=== PATIENT | male | born 1995 | race African-American/Black ===

== ENCOUNTER 2018-04-26 21:58 | Emergency (ER) | payer SELFPAY ==
--- NOTE | 2018-04-26 22:28 | EDPHYS ---
Physician Documentation [facility] Name: Deondre Amos Jr Age: 23 yrs Sex: Male : 1995 Arrival Date: 04/26/2018 Time: 22:07 Bed 19 Private MD: ED Physician Jimbo Johnson HPI: 04/26 22:15 This 23 yrs old Black Male presents to ER via Unassigned with complaints of Rash. ps1 22:21 rash localized in the webspace and dorsal aspect of the right hand. Described as bumps ps1 and itchy. No new contacts but thinks it may be from fiberglass from work. No remitting or exacerbating factors. Otherwise USOH. . Historical: - Allergies: 22:26 No Known Allergies; jb4 - PMHx: 22:26 None; jb4 - PSHx: 22:26 None; jb4 - Immunization history:: Adult Immunizations up to date, Last tetanus immunization: unknown, Flu vaccine is not up to date. - Social history:: Smoking status: Patient uses tobacco products, denies chronic smoking, but will smoke occasionally, Patient uses alcohol, only on a social basis. - Ebola Screening: : No symptoms or risks identified at this time. ROS: 22:21 Constitutional: Negative for fever, chills, and weight loss, Eyes: Negative for injury, ps1 pain, redness, and discharge, ENT: Negative for injury, pain, and discharge, Cardiovascular: Negative for chest pain, palpitations, and edema, Respiratory: Negative for shortness of breath, cough, wheezing, and pleuritic chest pain, Abdomen/GI: Negative for abdominal pain, nausea, vomiting, diarrhea, and constipation, Neuro: Negative for headache, weakness, numbness, tingling, and seizure. 22:21 Skin: Positive for rash, of the right hand. Exam: 22:21 Constitutional: This is a well developed, well nourished patient who is awake, alert, ps1 and in no acute distress. Head/Face: Normocephalic, atraumatic. Eyes: Pupils equal round and reactive to light, extra-ocular motions intact. Lids and lashes normal. Conjunctiva and sclera are non-icteric and not injected. Chest/axilla: Normal chest wall appearance and motion. Nontender with no deformity. No lesions are appreciated. Cardiovascular: Regular rate and rhythm. No gallops, murmurs, or rubs. Normal PMI, no JVD. No pulse deficits. Respiratory: Lungs have equal breath sounds bilaterally, clear to auscultation and percussion. No rales, rhonchi or wheezes noted. No increased work of breathing, no retractions or nasal flaring. Abdomen/GI: Soft, non-tender, with normal bowel sounds. No distension or tympany. No guarding or rebound. No evidence of tenderness throughout. 22:21 Skin: rash a mild rash is noted, rash can be described as macular, papular, contact dermatitis. Vital Signs: 22:26 BP 133 / 71; Pulse 81; Resp 18; Temp 99.0(O); Pulse Ox 95% on R/A; Weight 95.25 kg (R); jb4 Height 6 ft. 1 in. (185.42 cm) (R); Pain 0/10; 22:26 Body Mass Index 27.71 (95.25 kg, 185.42 cm) jb4 MDM: 22:10 Patient medically screened. ps1 22:21 Data reviewed: vital signs, nurses notes, lab test result(s), and as a result, I will ps1 discharge patient, administer steroids, hydrocortisone cream. Administered Medications: No medications were administered Disposition: 04/26/18 22:28 Discharged to Home. Impression: Atopic dermatitis. - Condition is Stable. - Discharge Instructions: Contact Dermatitis, [id number]. - Prescriptions for Hydrocortisone 0.5 % Topical Cream - apply 1 application by TOPICAL route every 12 hours As needed; 30 gram. - Work release form, Medication Reconciliation Form, Thank You Letter, Antibiotic Education, Prescription Opioid Use form. - Follow up: Private Physician; When: As needed; Reason: Recheck today's complaints, Continuance of care, Re-evaluation by your physician. - Problem is new. - Symptoms have improved. Signatures: Wing Martell RN RN jb4 Jimbo Johnson MD MD ps1 Corrections: (The following items were deleted from the chart) 22:42 22:28 04/26/2018 22:28 Discharged to Home. Impression: Atopic dermatitis. Condition is jb4 Stable. Forms are Medication Reconciliation Form, Thank You Letter, Antibiotic Education, Prescription Opioid Use. Follow up: Private Physician; When: As needed; Reason: Recheck today's complaints, Continuance of care, Re-evaluation by your physician. Problem is new. Symptoms have improved. ps1
--- NOTE | 2018-04-26 22:28 | ER ---
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 Transition of care: patient was not received from another setting of care. Onset of symptoms was April 26, 2018. Risk Assessment: Do you want to hurt yourself or someone else? Patient reports no desire to harm self or others. Initial Sepsis Screen: Does the patient meet any 2 criteria? No. Patient's initial sepsis screen is negative. Does the patient have a suspected source of infection? No. Patient's initial sepsis screen is negative. Care prior to arrival: None. 22:24 Method Of Arrival: Ambulatory jb4 22:24 Acuity: JENNY 4 jb4 Triage Assessment: 22:26 General: Appears in no apparent distress. comfortable, Behavior is calm, cooperative, jb4 appropriate for age. Pain: Denies pain. EENT: No signs and/or symptoms were reported regarding the EENT system. Neuro: Level of Consciousness is awake, alert, obeys commands, Oriented to person, place, time, situation. Cardiovascular: Patient's skin is warm and dry. Respiratory: Airway is patent Respiratory effort is even, unlabored, Respiratory pattern is regular, symmetrical. GI: No signs and/or symptoms were reported involving the gastrointestinal system. : No signs and/or symptoms were reported regarding the genitourinary system. Derm: Skin is intact, Skin is pink, warm \T\ dry. Rash noted that is itchy, Reports itching. Musculoskeletal: Circulation, motion, and sensation intact. Historical: - Allergies: 22:26 No Known Allergies; jb4 - PMHx: 22:26 None; jb4 - PSHx: 22:26 None; jb4 - Immunization history:: Adult Immunizations up to date, Last tetanus immunization: unknown, Flu vaccine is not up to date. - Social history:: Smoking status: Patient uses tobacco products, denies chronic smoking, but will smoke occasionally, Patient uses alcohol, only on a social basis. - Ebola Screening: : No symptoms or risks identified at this time. Screenin:32 Abuse screen: Denies threats or abuse. Nutritional screening: No deficits noted. jb4 Tuberculosis screening: No symptoms or risk factors identified. Fall Risk None identified. Assessment: 22:32 General: See triage assesment.. jb4 Vital Signs: 22:26 BP 133 / 71; Pulse 81; Resp 18; Temp 99.0(O); Pulse Ox 95% on R/A; Weight 95.25 kg (R); jb4 Height 6 ft. 1 in. (185.42 cm) (R); Pain 0/10; 22:26 Body Mass Index 27.71 (95.25 kg, 185.42 cm) jb4 ED Course: 22:07 Patient arrived in ED. es 22: Jimbo Johnson MD is Attending Physician. ps1 22:23 Wing Martell RN is Primary Nurse. jb4 22:25 Triage completed. jb4 22:26 Arm band placed on right wrist. jb4 22:32 Patient has correct armband on for positive identification. Bed in low position. Call jb4 light in reach. Pulse ox on. NIBP on. 22:32 No provider procedures requiring assistance completed. Patient did not have IV access jb4 during this emergency room visit. Administered Medications: No medications were administered Outcome: 22:28 Discharge ordered by . ps1 22:42 Discharged to home ambulatory. jb4 22:42 Condition: stable 22:42 Discharge instructions given to patient, Instructed on discharge instructions, follow up and referral plans. medication usage, Demonstrated understanding of instructions, follow-up care, medications, Prescriptions given X 1. 22:42 Patient left the ED. jb4 Signatures: Crystal Gallego James, RN RN jb4 Jimbo Johnson MD MD ps1
== END 2018-04-26 22:42 | disposition home or self-care (01) ==
LOC: ER 21:58
DX: L20.9 Atopic dermatitis, unspecified (principal); Z72.0 Tobacco use
CPT/HCPCS: 99283